=== PATIENT | female | born 1995 | race American Indian/Alaskan Native ===

== ENCOUNTER 2021-04-08 16:49 | Emergency (ER) | payer SELFPAY ==
[2021-04-08] MEDS ORDERED: predniSONE 20 MG TAB PO ONE (17:21)
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
[2021-04-08] MEDS: IPRATROPIUM 0.02% NEBU 2.5 ML IH ONE ×2 (17:45→17:55)
[2021-04-08] MEDS: ALBUTEROL 2.5 MG/3 ML NEBU IH ONE ×2 (17:45→17:46)
[2021-04-08 18:24] LABS: Hemoglobin 12.8 gm/dl (10.1-14.3); Mean Corpuscular HGB Conc 33 % (30-34); Mean Corpuscular Volume 82 fl (79-97); Platelet Count 140 K/mm3 (140-440); Red Blood Count 4.76 M/mm3 (3.65-5.03); Red Cell Distribution Width 13.9 % (13.2-15.2)
[2021-04-08 18:48] LABS: Creatine Kinase MB 1.5 ng/mL (0.0-4.0)
[2021-04-08 18:50] LABS: Blood Urea Nitrogen 8 mg/dL (7-17); Calcium 8.9 mg/dL (8.4-10.2); Hemolysis Index 11
[2021-04-08 18:57] LABS: BUN/Creatinine Ratio 13
[2021-04-08 19:47] LABS: RBC Morphology Normal; Total Cells Counted 100
--- NOTE | 2021-04-08 20:38 | XRay Report ---
CHEST 1 VIEW 04/08/2021 7:54 PM INDICATION / CLINICAL INFORMATION: Shortness of breath. COMPARISON: None available. FINDINGS: SUPPORT DEVICES: None. HEART / MEDIASTINUM: No significant abnormality. LUNGS / PLEURA: No significant pulmonary abnormality. No significant pleural effusion. No pneumothora x. ADDITIONAL FINDINGS: No significant additional findings. IMPRESSION: 1. No acute abnormality of the chest. Signer Name: Low Faust MD Signed: 04/08/2021 8:33 PM Workstation Name: [id number]
[2021-04-08] MEDS ORDERED: IPRATROPIUM/ALBUTEROL SULFATE 3 ML AMPUL.NEB IH ONE (20:43)
[2021-04-08 22:00] VITALS: BP 114/67
--- NOTE | 2021-04-09 13:26 | Electrocardiograph Report ---
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
== END 2021-04-08 22:00 | disposition home or self-care (01) ==
LOC: ED 16:49
DX: J45.901 Unspecified asthma with (acute) exacerbation (principal)
CPT/HCPCS: 36415; 71045; 80048; 82375; 82550; 82553; 84484; 84703; 85007; 85025; 93005; 94644; 99284; J7512